=== PATIENT | male | born 1975 | race Two or more races ===

== ENCOUNTER 2020-06-06 19:53 | Emergency (ER) | payer OTHER ==
[~2020-06-06] VITALS: Ht 175.3 cm; Wt 88.0 kg
== END 2020-06-07 00:11 | disposition home or self-care (01) ==
LOC: ER 19:53
DX: S63.621A Sprain of interphalangeal joint of right thumb, initial encounter (principal); X50.3XXA Overexertion from repetitive movements, initial encounter; Y93.89 Activity, other specified; Y92.69 Other specified industrial and construction area as the place of occurrence of the external cause; Y99.8 Other external cause status